=== PATIENT | male | born 1940 | race Caucasian/White ===

== ENCOUNTER 2017-03-09 12:10 | Inpatient (IN) | payer SELFPAY ==
[~2017-03-09] VITALS: Ht 170.2 cm; Wt 82.3 kg
--- NOTE | 2017-03-09 13:24 | NUR ---
PER PT DAUGHTER: PT IS C/O SOB, GENERALIZED WEAKNESS, PAIN TO BLE, AND NASAL CONGESTION. PT IS AAOX4, RESP EVEN AND UNLABORED, RA. LS CTA LORRAINE. REPORTS HAVING PRODUCTIVE COUGH WITH YELLOW PHLEGM. DENIES CHEST PAIN, DENIES ABD PAIN. NO SIGN OF PAIN WITH PALPATION TO CHEST OR ABD. DENIES N/V/D, DENIES RECENT FEVER. PT PLACED ON CARDIA MONITOR AND PULSE OX
--- NOTE | 2017-03-09 13:52 | NUR ---
PT REMAINS IN STABLE CONDITION. PT SLEEPING BUT EASILIY ARROUSABLE. VS STABLE, NAD NOTED. PT DAUGHTER REMAINS AT BEDSIDE. PT AWAITING MSE
--- NOTE | 2017-03-09 14:05 | NUR ---
DR DE LA TORRE AT BEDSIDE FOR MSE
--- NOTE | 2017-03-09 14:19 | NUR ---
INTERFACE ENGINEER AT BEDSIDE FOR BLOOD DRAW
--- NOTE | 2017-03-09 14:30 | NUR ---
RADIOLOGY AT BEDSIDE FOR PCXR
[2017-03-09 14:36] LABS: BASOPHIL % 0.5 % (0-2); PLATELET COUNT 351 x10^3mcL (130-400)
[2017-03-09 14:37] LABS: CALCIUM 8.7 mg/dL (8.5-10.1); CARBON DIOXIDE 24.8 mmol/L (21-32); CHLORIDE SERUM 97 mmol/L (98-107); CREATININE SERUM 0.9 mg/dL (0.7-1.3); GLUCOSE SERUM 229 mg/dL (74-106); SODIUM SERUM 137 mmol/L (136-145)
[2017-03-09 14:40] LABS: RED CELL DISTRIBUTION WIDTH 15.5 % (11.5-14.5)
--- NOTE | 2017-03-09 14:41 | NUR ---
R/T AT BEDSIDE FOR ABG
[2017-03-09 14:42] LABS: ALBUMIN 3.2 g/dL (3.4-5.0); ALKALINE PHOSPHATASE 66 U/L (46-116); ALT/SGPT 24 U/L (16-63); AST/SGOT 17 U/L (15-37); BILIRUBIN TOTAL 0.5 mg/dL (0.20-1.00); CHOLESTEROL 170 mg/dL (<200); CHOLESTEROL/HDL RATIO 4.1; HDL CHOLESTEROL 41 mg/dL (40-60); LIPASE 69 IU/L (73-393); TOTAL PROTEIN, SERUM 7.2 g/dL (6.4-8.2); TRIGLYCERIDES 136 mg/dL (<150)
[2017-03-09 14:54] LABS: T3 TOTAL 0.75 ng/mL
[2017-03-09 15:02] LABS: FREE T4 1.16 ng/dL (0.76-1.46); T4(THYROXINE) 8.3 ug/dL (4.7-13.3)
--- NOTE | 2017-03-09 15:36 | NUR ---
PT IN STABLE CONDITION. RESP EVEN AND UNLABORDED, RA. VS STABLE. NAD NOTED. PT REMINDED OF NEED TO COLLECT URINE. PT VERBALIZED UNDDERSTANDING.
[2017-03-09] MEDS ORDERED: METFORMIN500 M1 (15:54)
--- NOTE | 2017-03-09 15:54 | NUR ---
MIKA REC UPDATED WITH BEST INFO FROM PT DAUGHTER WHO STS PT IS ONLTY ON METFORMIN BUT UNABLE TO RECALL DOSE, STS WILL FIND OUT
[2017-03-09] MEDS ORDERED: METFORMIN HCL500 MG PO (15:56)
--- NOTE | 2017-03-09 15:56 | NUR ---
PT DAUGHTER OBTAINED MED INFOR, MED REC UPDATED
--- NOTE | 2017-03-09 16:27 | NUR ---
CALLED SUKUMAR RONQUILLO TO GIVE REPORT, REQUESTING CALL BACK IN 10 MINS
--- NOTE | 2017-03-09 16:35 | NUR ---
MED STUDENT [employer] AT BEDSIDE SPEAKING WITH PT AND PT DAUGHTER
[2017-03-09 16:39] LABS: CHOLESTEROL/HDL RATIO 4.1; MAGNESIUM 1.9 mg/dL (1.8-2.4); PHOSPHOROUS 2.5 mg/dL (2.5-4.9)
--- NOTE | 2017-03-09 16:43 | NUR ---
REPORT GIVEN TO SUKUMAR RONQUILLO IN [facility] FOR CONTINUITY OF CARE, AWARE URINIE STILL TO BE COLLECTED
--- NOTE | 2017-03-09 17:07 | NUR ---
RECEIVED PT FROM ER NURSE. PT AMBULATED WITH ASSIST FROM GURNEY TO BED. PT ORIENTED x4. TELE BOX #36 NSR ON MONITOR, HR:74. VITAL SIGNS STABLE. +2 PULSES TO ALL EXTREMITIES. EFFORTLESS BREATHING ON ROOM AIR. BOWEL SOUNDS PRESENT TO ALL QUADRANTS. VOIDS WITHOUT DISCOMFORT. STATES WEAKNESS TO BLE. SKIN INTACT. DENIES PAIN AT MOMENT. IV TO RIGHT HAND #20. INSTRUCTED TO USE OF CALL LIGHT. NON-SLIP SOCKS APPLIED. BED IN LOWEST POSITION, CALL LIGHT WITHIN REACH.
[2017-03-09 17:31] VITALS: BP 118/49; BP 147/79
--- NOTE | 2017-03-09 17:38 | NUR ---
REC'D AWAKE ALERT AND ORIENTED TO SELF. DENIES CHEST PAIN. ON TELE 34, NSR. ON RA, NO SOB NOTED. SKIN INTACT. IV SITE WNL. AMBULATES WITH SLOW GAIT, NEEDS ASSIST. ORIENTED TO ROOM AND SURROUNDINGS. CALL LIGHT WITHIN REACH, PROVIDED REPORT TO JACINTA RONQUILLO FOR CONTINUITY OF CARE.
[2017-03-09 18:38] LABS: microscopic required? YES; urine erythrocyte NEGATIVE (NEGATIVE)
[2017-03-09 18:59] LABS: AMPHETAMINE QUAL UR NONE DETECTED (NEG <=1000)
--- NOTE | 2017-03-09 19:15 | NUR ---
PT IS A/O X4, VERBAL RESPONSIVE, ABLE TO TELL WHAT HE NEEDS. LUNG SOUND CLEAR BILATERAL, NO COUGH, NO SOB, PT IS ON TELE NSR, DENY ANY CHEST PAIN OR DISCOMFORT, BOWEL SOUND PRESENT ALL 4 QUADRANTS, NO DISTENTION, NO TENDER. PEDAL PULSE PRESENT BOTH FEET, NO EDEMA NOTED, IV AT RIGHT HAND, NO LEAKING, NO INFILTRATION. ALL ADLS ASSIST, ALL NEED MET, CALL LIGHT IN REACH, WILL CONTINUE TO MONITOR.
--- NOTE | 2017-03-09 19:39 | NUR ---
REPORT TO DR. HERNANDEZ THE LACTIC ACID IS 2.1, REQUEST THE SECOND LACTIC ACID TEST, ALSO REPORT TO DR. HERNANDEZ REGARDING THE UA RESULT, MADE AWARE. WAITING FOR NEW ORDER.
--- NOTE | 2017-03-09 19:48 | NUR ---
TALKED TO DR. HERNANDEZ REQUEST FOR THIRD TROPNIN TEST, DR. HERNANDEZ MADE AWARE.
[2017-03-09 20:33] VITALS: BP 120/72
--- NOTE | 2017-03-09 21:45 | NUR ---
REPORT TO DR. HERNANDEZ AND DR. PATRICK REGARDING THE PT SECOND LACTIC ACID 2.2. MADE AWARE.
--- NOTE | 2017-03-10 05:10 | NUR ---
PT IS SLEEPING, DENY ANY CHEST PAIN OR DISCOMFORT, DENY ANY RESPIRATORY DISTRESS, IV AT RIGHT HAND, NO LEAKING, NO INFILTRATION. ALL ADLS ASSIST, ALL NEED MET, CALL LIGHT IN REACH, WILL CONTINUE TO MONITOR.
[2017-03-10 05:24] VITALS: BP 131/79
[2017-03-10 07:35] LABS: BASOPHIL % 0.5 % (0-2); PLATELET COUNT 310 x10^3mcL (130-400)
--- NOTE | 2017-03-10 07:40 | NUR ---
RECEIVED PT IN BED A/A/OX4 DENIES DUNBAR. RESP EVEN AND UNLABORED WITH CLEAR BS BILAT. DENIES ANY SOB/CP/PRESSURE AT THIS TIME. ABD SOFT, NONTENDER WITH ACTIVE BS X4. DENIES ANY N/V AT THIS TIME. VOIDING FREELY. AMBULATORY WITH SUPERVISION. CALL LIGHT IN REACH NEEDS ATTENDED TO.
[2017-03-10 07:45] LABS: CALCIUM 8.3 mg/dL (8.5-10.1); CARBON DIOXIDE 25.7 mmol/L (21-32); CHLORIDE SERUM 105 mmol/L (98-107); CREATININE SERUM 0.7 mg/dL (0.7-1.3); GLUCOSE SERUM 98 mg/dL (74-106); POTASSIUM SERUM 3.8 mmol/L (3.5-5.1); SODIUM SERUM 139 mmol/L (136-145)
[2017-03-10 09:00] VITALS: BP 121/76
[2017-03-10 09:52] VITALS: BP 124/68
--- NOTE | 2017-03-10 11:30 | NUR ---
PT RESTING COMFORTABLY AT THIS TIME. DENIES ANY DISCOMFORT. CALL LIGHT IN REACH NEEDS ATTENDED TO.
[2017-03-10 13:46] VITALS: BP 102/61
[2017-03-10 17:23] VITALS: BP 112/72
--- NOTE | 2017-03-10 17:30 | NUR ---
MESSAGE SENT VIA [employer] TO DR. HERNANDEZ, TO NOTIFY MD THAT PT HAS REFUSED [employer] COVERAGE FOR BS BOTH DURING LUNCH AT 154, AND PRIOR TO DINNER AT 171. PT STATES THAT IT IS D/T METFORMIN BEING HELD THAT HIS BLOOD SUGARS ARE HI. MADE AWARE, AWAITING CALL BACK.
--- NOTE | 2017-03-10 18:15 | NUR ---
PT RESTING AT THIS TIME HAVING DINNER WITH FAMILY AT BEDSIDE. CALL LIGHT IN REACH NEEDS ATTENDED TO.
--- NOTE | 2017-03-10 19:47 | NUR ---
PT IS A/O X4, VERBAL RESPONSIVE, ABLE TO TELL WHAT HE NEEDS. LUNG SOUND CLEAR BILATERAL, NO COUGH, NO COUGH, PT DENY ANY CHEST PAIN AT THIS MOMENT PT IS ON TELE 36, NSR, BOWEL SOUND PRESENT ALL 4 QUADRANTS, NO DISTENTION, NO TENDER. PEDAL PULSE PRESENT BOTH FEET, NO EDEMA NOTED, PT C/O PAIN AT BLE, NORCO IS GIVEN, IV AT RIGHT HAND, NO LEAKING, NO INFILTRATION. ALL ADLS ASSIST, ALL NEED MET, CALL LIGHT IN REACH, WILL CONTINUE TO MONITOR.
[2017-03-10 20:12] VITALS: BP 96/63
--- NOTE | 2017-03-11 05:06 | NUR ---
PT IS SLEEPING, AWAKE BY TOUCH, DENY ANY CHEST PAIN AT THIS MOMENT, DENY ANY RESPIRATORY DISTRESS, IV AT RIGHT HAND, NO LEAKING, NO INFILTRATION. ALL ADLS ASSIST, ALL NEED MET, CALL LIGHT IN REACH, WILL CONTINUE TO MONITOR.
[2017-03-11 05:27] VITALS: BP 122/72
[2017-03-11 06:38] LABS: BASOPHIL % 0.5 % (0-2); PLATELET COUNT 312 x10^3mcL (130-400)
[2017-03-11 06:55] LABS: CALCIUM 8.1 mg/dL (8.5-10.1); CARBON DIOXIDE 24.7 mmol/L (21-32); CHLORIDE SERUM 110 mmol/L (98-107); CREATININE SERUM 0.8 mg/dL (0.7-1.3); GLUCOSE SERUM 94 mg/dL (74-106); MAGNESIUM 1.9 mg/dL (1.8-2.4); PHOSPHOROUS 3.1 mg/dL (2.5-4.9); POTASSIUM SERUM 3.9 mmol/L (3.5-5.1); RED CELL DISTRIBUTION WIDTH 14.8 % (11.5-14.5); SODIUM SERUM 146 mmol/L (136-145)
[2017-03-11 09:40] VITALS: BP 102/61
[2017-03-11] MEDS ORDERED: GLU5 PO (10:32)
[2017-03-11] MEDS ORDERED: KEFLEX500 M1 PO (10:40)
[2017-03-11] MEDS ORDERED: GLIPIZIDE5 M2 PO (10:44)
[2017-03-11] MEDS ORDERED: LAC PO (10:51)
[2017-03-11 11:21] VITALS: BP 102/61
--- NOTE | 2017-03-11 11:43 | NUR ---
DC'D SL ANGIO INTACT. PRESCRIPTIONS SENT TO PT'S PREFERRED PHARMACY, AND A PRESCRIPTION FOR THE GLUCOMETER WAS GIVEN TO HIM. PT WAS GIVEN DIABETIC INSTRUCTIONS AND HOW TO DO ACCUCHECKS AC/HS. PT AND DTR VERBALIZED "I UNDERSTAND" TO ALL INSTRUCTIONS.
== END 2017-03-11 11:40 | disposition home or self-care (01) | DRG 205 ==
LOC: ED 12:10 → DU 16:06
PROVIDERS: Specialist; ADMIT Family Medicine
DX: M94.0 Chondrocostal junction syndrome [Tietze] (principal); G93.41 Metabolic encephalopathy; N39.0 Urinary tract infection, site not specified; E44.0 Moderate protein-calorie malnutrition; E87.2 Acidosis; E87.0 Hyperosmolality and hypernatremia; E87.3 Alkalosis; I10 Essential (primary) hypertension; E87.8 Other disorders of electrolyte and fluid balance, not elsewhere classified; Z68.28 Body mass index [BMI] 28.0-28.9, adult; E78.5 Hyperlipidemia, unspecified; E11.65 Type 2 diabetes mellitus with hyperglycemia; E83.51 Hypocalcemia; Z87.891 Personal history of nicotine dependence; I08.0 Rheumatic disorders of both mitral and aortic valves
CPT/HCPCS: 36600; 83880; 84439; J0696; J7030; Q0092